=== PATIENT | female | born 1990 | race Caucasian/White ===

== ENCOUNTER 2022-12-21 11:59 | Emergency (ER) | payer MEDICARE, BC ==
[~2022-12-21] VITALS: Ht 167.6 cm; Wt 159.0 kg
[2022-12-21] MEDS ORDERED: PRENTAB77 PO (12:21)
[2022-12-21] MEDS ORDERED: LEVO75TA4 (12:21)
[2022-12-21] MEDS ORDERED: LABE20TAB (12:21)
[2022-12-21] MEDS ORDERED: ASPI81CH33 PO (12:21)
[2022-12-21 13:57] LABS: HEMATOCRIT 32.5 % (36.0-47.0); HEMOGLOBIN 10.4 g/dl (12.0-15.5); MEAN CORPUSCULAR HEMOGLOBIN 30.3 pg (27.0-33.0); MEAN CORPUSCULAR VOLUME 94.8 fl (80.0-96.0); PLATELET COUNT, AUTOMATED 130 10^3/uL (150-450); RED BLOOD COUNT 3.43 10^6/uL (4.00-5.40); WHITE BLOOD COUNT 7.7 10^3/uL (4.0-10.0)
[2022-12-21 14:13] LABS: BLOOD UREA NITROGEN 10 MG/DL (9-23); CALCIUM LEVEL 8.6 MG/DL (8.5-10.1); CARBON DIOXIDE LEVEL 23 MMOL/L (20-31); CHLORIDE LEVEL 109 MMOL/L (98-107); CREATININE FOR GFR 0.67 MG/DL (0.55-1.30); GLOMERULAR FILTRATION RATE > 60.0 (>60); GLUCOSE, FASTING 78 MG/DL (60-100); POTASSIUM SERUM 4.4 MMOL/L (3.5-5.1); SODIUM LEVEL 141 MMOL/L (136-145)
[2022-12-21 15:04] VITALS: BP 143/84; TEMP 97.4; O2SAT 97
== END 2022-12-21 15:06 | disposition home or self-care (01) ==
LOC: M ED 11:59
DX: M79.605 Pain in left leg (principal); R60.9 Edema, unspecified; K58.9 Irritable bowel syndrome, unspecified; F31.9 Bipolar disorder, unspecified; Z87.891 Personal history of nicotine dependence; Z91.048 Other nonmedicinal substance allergy status; Z79.82 Long term (current) use of aspirin; Z79.810 Long term (current) use of selective estrogen receptor modulators (SERMs); Z79.899 Other long term (current) drug therapy

== ENCOUNTER 2023-04-26 11:43 | Emergency (ER) | payer MEDICARE, BC ==
[~2023-04-26] VITALS: Ht 167.6 cm; Wt 155.1 kg
[~2023-04-26 11:43] MED LIST: ASPI81CH33 PO; LABE20TAB; LEVO75TA4; PRENTAB77 PO
[2023-04-26 11:44] VITALS: BP 144/87; TEMP 98.9; O2SAT 96
[2023-04-26 13:30] LABS: BASO % 0.3 % (0.0-1.0); EOS # 0.1 10^3/uL (0.0-0.5); EOS % 0.9 % (0.0-3.0); HEMATOCRIT 39.2 % (36.0-47.0); HEMOGLOBIN 12.7 g/dl (12.0-15.5); LYMPH # 2.4 10^3/uL (1.5-5.0); LYMPH % 21.3 % (24.0-44.0); MEAN CORPUSCULAR HEMOGLOBIN 29.5 pg (27.0-33.0); MEAN CORPUSCULAR HGB CONC 32.4 g/dl (32.0-36.5); MONO # 0.4 10^3/uL (0.0-0.8); MONO % 3.7 % (2.0-8.0); NEUTROPHILS # 8.4 10^3/uL (1.5-8.5); NEUTROPHILS % 73.4 % (36.0-66.0); PLATELET COUNT, AUTOMATED 234 10^3/uL (150-450); RED BLOOD COUNT 4.31 10^6/uL (4.00-5.40); WHITE BLOOD COUNT 11.5 10^3/uL (4.0-10.0)
[2023-04-26 13:51] LABS: HCG, SERUM QUANTITATIVE 440.3 MIU/ML (<4.2); LIPASE 29 U/L (12-53)
[2023-04-26 13:54] LABS: ALBUMIN 3.7 G/DL (3.2-5.2); ALKALINE PHOSPHATASE 85 U/L (46-116); ALT/SGPT 17 U/L (7.0-40); AST/SGOT 11 U/L (<34); BILIRUBIN,DIRECT 0.3 MG/DL (<0.4); BILIRUBIN,TOTAL 0.8 MG/DL (0.3-1.2); BLOOD UREA NITROGEN 9 MG/DL (9-23); CALCIUM LEVEL 9.2 MG/DL (8.5-10.1); CARBON DIOXIDE LEVEL 27 MMOL/L (20-31); CHLORIDE LEVEL 108 MMOL/L (98-107); CREATININE FOR GFR 0.72 MG/DL (0.55-1.30); GLOMERULAR FILTRATION RATE > 60.0 (>60); GLUCOSE, FASTING 85 MG/DL (60-100); POTASSIUM SERUM 4.2 MMOL/L (3.5-5.1); SODIUM LEVEL 142 MMOL/L (136-145); TOTAL PROTEIN 6.3 G/DL (5.7-8.2)
== END 2023-04-26 13:35 | disposition left against medical advice (07) ==
LOC: M ED 11:43
DX: Z53.21 Procedure and treatment not carried out due to patient leaving prior to being seen by health care provider (principal)

== ENCOUNTER 2023-08-31 09:14 | Inpatient (IN) | payer MEDICARE, BC ==
[~2023-08-31] VITALS: Ht 167.6 cm; Wt 84.9 kg
[2023-08-31] MEDS ORDERED: BUSP10TA79 PO (09:21)
[2023-08-31] MEDS ORDERED: INVE3TAB2 PO (09:21)
[2023-08-31 10:10] LABS: HEMATOCRIT 42.2 % (36.0-47.0); HEMOGLOBIN 14.2 g/dl (12.0-15.5); MEAN CORPUSCULAR HEMOGLOBIN 28.9 pg (27.0-33.0); MEAN CORPUSCULAR HGB CONC 33.6 g/dl (32.0-36.5); MEAN CORPUSCULAR VOLUME 85.8 fl (80.0-96.0); PLATELET COUNT, AUTOMATED 238 10^3/uL (150-450); RED BLOOD COUNT 4.92 10^6/uL (4.00-5.40); WHITE BLOOD COUNT 11.2 10^3/uL (4.0-10.0)
[2023-08-31] MEDS ORDERED: MED REC IN PROGRESS XX SCH (10:30)
[2023-08-31 10:33] LABS: ETHYL ALCOHOL (ETHANOL) 0.005 % (0.000-0.010)
[2023-08-31 10:34] LABS: SALICYLATE LEVEL < 3.0 MG/DL (<30)
[2023-08-31 10:35] LABS: ALKALINE PHOSPHATASE 103 U/L (46-116); ALT/SGPT 25 U/L (7.0-40); AST/SGOT 11 U/L (<34); BILIRUBIN,DIRECT 0.3 MG/DL (<0.4); BILIRUBIN,TOTAL 0.9 MG/DL (0.3-1.2); BLOOD UREA NITROGEN 13 MG/DL (9-23); CALCIUM LEVEL 9.8 MG/DL (8.5-10.1); CARBON DIOXIDE LEVEL 24 MMOL/L (20-31); CHLORIDE LEVEL 109 MMOL/L (98-107); CREATININE FOR GFR 0.67 MG/DL (0.55-1.30); GLOMERULAR FILTRATION RATE > 60.0 (>60); GLUCOSE, FASTING 139 MG/DL (60-100); POTASSIUM SERUM 4.3 MMOL/L (3.5-5.1); SODIUM LEVEL 140 MMOL/L (136-145)
[2023-08-31 10:36] LABS: THYROID STIMULATING HORMONE 1.824 uIU/ML (0.55-4.78)
[2023-08-31 10:41] LABS: HCG, SERUM QUALITATIVE NEGATIVE (NEGATIVE)
[2023-08-31] MEDS ORDERED: THERTAB52 PO (11:02)
[2023-08-31] MEDS ORDERED: HYDR1CAP25 PO (11:02)
[2023-08-31] MEDS ORDERED: HOME MED LIST COMPLETE! XX SCH (11:05)
[2023-08-31 11:50] LABS: AMPHETAMINES LEVEL URINE NEGATIVE (NEGATIVE); BARBITURATES URINE NEGATIVE (NEGATIVE); BENZODIAZEPINES URINE NEGATIVE (NEGATIVE); COCAINE METABOLITE URINE NEGATIVE (NEGATIVE); METHADONE URINE NEGATIVE (NEGATIVE); OPIATES URINE NEGATIVE (NEGATIVE); PHENCYCLIDINE URINE NEGATIVE (NEGATIVE)
[2023-08-31 11:58] LABS: CANNABINOIDS URINE POSITIVE (NEGATIVE)
[2023-08-31] MEDS ORDERED: ACETAMINOPHEN TAB 650MG DOSE (2X325MG) PO PRN (12:45)
[2023-08-31] MEDS ORDERED: MOM 30ML SUSPENSION UDC PO PRN (12:45)
[2023-08-31] MEDS ORDERED: MAALOX 30 ML SUSP *UDC PO PRN (12:45)
[2023-08-31] MEDS ORDERED: IBUPROFEN 400MG TAB PO PRN (12:45)
[2023-08-31] MEDS ORDERED: diphenhydrAMINE 25MG CAP PO PRN (12:45)
[2023-08-31] MEDS: traZODone 50 MG TAB PO PRN (20:59)
[2023-09-01 06:18] VITALS: BP 129/69; TEMP 98.7; O2SAT 94
[2023-09-01] MEDS: MULTIVITAMINS/MINERALS THERAP 1 TAB PO SCH (13:55)
[2023-09-01] MEDS: ACETAMINOPHEN 500 MG TAB PO ONE (17:54)
[2023-09-01] MEDS: oxyCODONE 5MG TAB PO ONE (17:54)
[2023-09-01] MEDS: DICLOFENAC EPOLAMINE 1.3% PATCH TOP SCH (17:55)
[2023-09-01 18:05] VITALS: BP 126/77; TEMP 97.5; O2SAT 99
[2023-09-01 19:39] LABS: HEMOGLOBIN A1c 4.9 % (4.0-6.0)
[2023-09-01] MEDS: PALIPERIDONE 3MG ER TAB (INVEGA) PO SCH (20:46)
[2023-09-01] MEDS: busPIRone 10 MG TAB PO SCH (20:46)
[2023-09-02 06:45] VITALS: BP 138/90; TEMP 97.5; O2SAT 97
[2023-09-02 06:46] LABS: CHOLESTEROL RISK RATIO 4.85 (<5); HDL CHOLESTEROL 35.6 MG/DL (>40); LDL CHOLESTEROL 109.6 MG/DL (<100); NON-HDL-C 137.4 MG/DL
[2023-09-02 16:01] VITALS: BP 138/79; TEMP 97.6; O2SAT 100
[2023-09-03 06:23] VITALS: BP 134/81; TEMP 98.8; O2SAT 97
[2023-09-03 16:18] VITALS: BP 135/70; TEMP 98.4; O2SAT 99
[2023-09-03 21:08] LABS: ANTINUCLEAR ANTIBODIES DIRECT Negative (Negative); CYCLIC CITRULLINATED PEPTIDE 4 units (0-19)
[2023-09-04 06:54] VITALS: BP 150/90; TEMP 98.4; O2SAT 96
[2023-09-04 15:45] VITALS: BP 133/77; TEMP 98.1; O2SAT 100
[2023-09-05 06:30] VITALS: BP 156/97; TEMP 98.7; O2SAT 99
[2023-09-05] MEDS ORDERED: TRAZ-252 PO (10:44)
[2023-09-05] MEDS ORDERED: PALI1TAB2 PO (10:44)
== END 2023-09-05 13:56 | disposition home or self-care (01) | DRG 881 ==
LOC: M ED 09:14 → M ED INP 12:41 → M PSY 15:03
PROVIDERS: ADMIT Student in an Organized Health Care Education/Training Program; ATTEND Student in an Organized Health Care Education/Training Program
DX: F53.0 Postpartum depression (principal); F33.2 Major depressive disorder, recurrent severe without psychotic features; R45.851 Suicidal ideations; F84.0 Autistic disorder; Z68.43 Body mass index [BMI] 50.0-59.9, adult; F41.9 Anxiety disorder, unspecified; G47.00 Insomnia, unspecified; F60.3 Borderline personality disorder; M54.59 Other low back pain; E66.01 Morbid (severe) obesity due to excess calories; M19.90 Unspecified osteoarthritis, unspecified site; Z79.899 Other long term (current) drug therapy